=== PATIENT | male | born 1995 | race Hispanic/Latino ===

== ENCOUNTER 2017-09-27 11:53 | Emergency (ER) | payer MEDICAID, OTHER ==
[2017-09-27] MEDS ORDERED: ACETAMINOPHEN EXTRA STRENGTH 500 MG TABLET ONE (12:07)
== END 2017-09-27 12:26 | disposition home or self-care (01) ==
LOC: EDH 11:53
DX: B34.9 Viral infection, unspecified (principal); J11.1 Influenza due to unidentified influenza virus with other respiratory manifestations; Z87.891 Personal history of nicotine dependence

== ENCOUNTER 2017-10-01 09:44 | Emergency (ER) | payer SELFPAY | END 2017-10-01 10:49 | disposition home or self-care (01) | LOC: EDH 09:44 | DX: J06.9 Acute upper respiratory infection, unspecified (principal); L30.8 Other specified dermatitis | CPT/HCPCS: 99281 ==

== ENCOUNTER 2019-08-22 22:36 | Emergency (ER) | payer OTHER ==
[2019-08-22 23:03] LABS: APPEARANCE,URINE Clear (CLEAR); BILIRUBIN,URINE Negative (NEGATIVE); COLOR,URINE Yellow (YELLOW); GLUCOSE, URINE (UA) Negative (NEGATIVE); KETONES,URINE Negative (NEGATIVE); LEUKOCYTE ESTERASE ,URINE Negative (NEGATIVE); NITRATE,URINE Negative (NEGATIVE); OCCULT BLOOD,URINE Negative (NEGATIVE); PROTEIN,URINE Negative (NEGATIVE); UROBILINOGEN,URINE 0.2 mg/dL (0.2-1.0)
[2019-08-22 23:48] LABS: BASOPHILS % (AUTO) 0.4 % (0.0-5.0); EOSINOPHILS % (AUTO) 1.6 % (0.0-8.0); MEAN CORPUSCULAR HEMOGLOBIN 29.5 pg (27.0-33.0); MEAN CORPUSCULAR HGB CONC 34.3 g/dL (32.0-36.0); MEAN CORPUSCULAR VOLUME 85.8 fL (80-100); MONOCYTES % (AUTO) 5.8 % (3.0-13.0); NEUTROPHILS % (AUTO) 65.2 % (40.0-77.0); NUCLEATED RED BLOOD CELLS 0.1 % (0.0-0.19); PLATELET COUNT (AUTO) 192 K/uL (130-400); RED BLOOD CELL COUNT(AUTO) 4.66 MIL/uL (4.50-6.20); RED CELL DISTRIBUTION WIDTH 13.1 % (11.0-15.5); WHITE BLOOD COUNT (AUTO) 7.3 K/uL (4.8-10.8)
[2019-08-22 23:53] LABS: AMPHET/METH SCREEN,URINE NEGATIVE (NEGATIVE); BARBITURATE SCREEN, URINE NEGATIVE (NEGATIVE); BENZODIAZEPINES SCREEN,URINE NEGATIVE (NEGATIVE); CANNABINOID SCREEN,URINE NEGATIVE (NEGATIVE); COCAINE SCREEN,URINE NEGATIVE (NEGATIVE); OPIATE SCREEN,URINE NEGATIVE (NEGATIVE); PHENCYCLIDINE SCREEN,URINE NEGATIVE (NEGATIVE)
[2019-08-23 00:02] LABS: CREATININE 0.8 mg/dL (0.5-1.5); POTASSIUM 3.5 mmol/L (3.5-5.1)
[2019-08-23 00:07] LABS: ALBUMIN 3.4 g/dL (3.5-5.0); BILIRUBIN,TOTAL 0.5 mg/dL (0.2-1.0); TOTAL PROTEIN, SERUM 6.8 g/dL (6.0-8.3)
[2019-08-23] MEDS ORDERED: LACTULOSE 20 GM/30 ML UDCUP ONE (03:23)
== END 2019-08-23 03:42 | disposition home or self-care (01) ==
LOC: EDH 22:36
DX: K59.00 Constipation, unspecified (principal); R10.33 Periumbilical pain
CPT/HCPCS: 36415; 80053; 80305; 81003; 83690; 85025

== ENCOUNTER 2019-08-27 21:38 | Emergency (ER) | payer OTHER | END 2019-08-27 22:22 | disposition home or self-care (01) | LOC: EDH 21:38 | DX: R10.33 Periumbilical pain (principal) | CPT/HCPCS: 99281 ==

== ENCOUNTER 2019-11-16 06:13 | Emergency (ER) | payer SELFPAY ==
[2019-11-16] MEDS ORDERED: KETOROLAC TROMETHAMINE 60 MG/2 ML VIAL ONE (07:19)
[2019-11-16] MEDS ORDERED: DEXAMETHASONE SOD PHOSPHATE 10MG/ML 1ML VIAL ONE (07:19)
== END 2019-11-16 08:10 | disposition home or self-care (01) ==
LOC: EDH 06:13
DX: R07.89 Other chest pain (principal); Z90.89 Acquired absence of other organs
CPT/HCPCS: 71045; 93005; 96372 ×2; 99284; J1100; J1885

== ENCOUNTER 2023-08-14 14:22 | Emergency (ER) | payer OTHER ==
[~2023-08-14] VITALS: Ht 188 cm; Wt 127.0 kg
[2023-08-14 16:13] LABS: SARS-CoV-2, RNA, NAAT NEGATIVE SARS CoV-2 (NEGATIVE)
[2023-08-14 16:19] LABS: RAPID GROUP A STREP negative (NEGATIVE)
[2023-08-14 16:20] LABS: INFLUENZA TYPE A Negative For Type A (NEGATIVE); INFLUENZA TYPE B Negative For Type B (NEGATIVE)
[2023-08-14 18:34] VITALS: BP 146/86; PULSE 76; RESP 17; O2SAT 98
== END 2023-08-14 18:39 | disposition home or self-care (01) ==
LOC: EDH 14:35
DX: B34.9 Viral infection, unspecified (principal); Z20.822 Contact with and (suspected) exposure to COVID-19
CPT/HCPCS: 99284; 71045; 87635; 87880; 87804 ×2; C9803